=== PATIENT | male | born 1945 | race Caucasian/White ===

== ENCOUNTER → 2020-09-01 10:18 | Outpatient (BNVA) | payer MEDICARE, OTHER, SELFPAY | PROVIDERS: PCP Internal Medicine; Visit Provider Hospitalist | DX: J44.9 Chronic obstructive pulmonary disease, unspecified (principal); J98.6 Disorders of diaphragm; D80.3 Selective deficiency of immunoglobulin G [IgG] subclasses | CPT/HCPCS: 99212 ==

== ENCOUNTER → 2021-03-02 10:55 | Outpatient (BNVA) | payer MEDICARE, OTHER, SELFPAY | PROVIDERS: PCP Internal Medicine; Visit Provider Hospitalist | DX: D80.3 Selective deficiency of immunoglobulin G [IgG] subclasses (principal); J98.6 Disorders of diaphragm; J41.0 Simple chronic bronchitis | CPT/HCPCS: 99212 ==

== ENCOUNTER 2021-07-31 13:50 | Outpatient (REF) | payer MEDICARE, OTHER, SELFPAY ==
--- NOTE | ~2021-07-31 | XR_ITS ---
EXAMINATION: XR CHEST CLINICAL INFORMATION: Chronic obstructive pulmonary disease. COMPARISON: 02/25/2020 TECHNIQUE: 2 views of the chest were obtained. FINDINGS: Chronic elevation of the left hemidiaphragm with underlying gas filled stomach. No consolidation, edema, or effusion. No pneumothorax. The cardiomediastinal silhouette is within normal limits. No acute osseous abnormality. XR/XR chest 2V IMPRESSION: Chronic elevation of the left hemidiaphragm. No acute pulmonary finding.
== END 2021-07-31 13:51 | disposition home or self-care (01) ==
LOC: HO.XRAY 13:50
PROVIDERS: PCP Internal Medicine; Visit Provider Hospitalist
DX: J44.9 Chronic obstructive pulmonary disease, unspecified (principal); J98.6 Disorders of diaphragm; G47.33 Obstructive sleep apnea (adult) (pediatric); D80.3 Selective deficiency of immunoglobulin G [IgG] subclasses; Z99.89 Dependence on other enabling machines and devices
CPT/HCPCS: 71046; 99212

== ENCOUNTER 2021-10-26 09:33 | Outpatient (REF) | payer MEDICARE, OTHER, SELFPAY ==
--- NOTE | ~2021-10-26 | XR_ITS ---
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 Elevation left hemidiaphragm unchanged from prior exam. Heart and mediastinum: The mediastinum is within normal limits.. Bones/soft tissue: Skeletal structures included are normal for patient's age. XR/XR chest 2V IMPRESSION: No radiographic evidence of acute cardiopulmonary disease. Elevation of left hemidiaphragm unchanged. May consider correlation with fluoroscopic sniff test to assess diaphragmatic mobility/paralysis if clinically indicated.
[2021-10-26 10:01] LABS: MANUAL DIFF FLAG NO
[2021-10-26 10:26] LABS: Basophils Absolute Auto 0.1 X10*3/uL (0.0-0.2); Eosinophils Percent Auto 0.1 % (0-4); Hematocrit 41.9 % (42.0-52.0); Hemoglobin 13.4 g/dl (14.0-18.0); Imm Gran Abs Auto 0.02 X10*3/uL (0.00-0.03); Imm Gran Pct Auto 0.3 % (0.0-0.4); Lymphocytes Absolute Auto 1.9 X10*3/uL (1.2-4.9); Lymphocytes Percent Auto 28.1 % (20-40); Mean Corpuscular Hemoglobin 31.2 pg (27.0-33.0); Mean Corpuscular Volume 97.4 fL (80.0-98.0); Mean Platelet Volume 10.1 fL (9.4-12.4); Monocytes Absolute Auto 0.6 X10*3/uL (0.1-1.2); Monocytes Percent Auto 8.8 % (2-11); Neutrophils Absolute Auto 4.2 x10*3/uL (2.0-8.3); Neutrophils Percent Auto 61.7 % (45-73); Platelet Count 210 X10*3/uL (160-400); Red Cell Distribution Width 12.8 % (11.0-16.0); White Blood Count 6.8 X10*3/uL (4.8-10.8)
[2021-10-26 11:04] LABS: Erythrocyte Sedimentation Rate 5 MM/HR (0-15)
[2021-10-27 18:36] LABS: Immunoglobulin G Subclass 1 333 mg/dL (382-929); Immunoglobulin G Subclass 2 360 mg/dL (241-700); Immunoglobulin G Subclass 3 101 mg/dL (22-178); Immunoglobulin G Subclass 4 27.6 mg/dL (4-86); Immunoglobulin G Total 790 mg/dL (600-1540)
== END 2021-10-26 09:34 | disposition home or self-care (01) ==
LOC: HO.XRAY 09:33
PROVIDERS: PCP Internal Medicine; Visit Provider Hospitalist
DX: J44.9 Chronic obstructive pulmonary disease, unspecified (principal); J98.6 Disorders of diaphragm
CPT/HCPCS: 36415; 71046; 82784; 85025; 85652

== ENCOUNTER → 2021-10-31 15:17 | Outpatient (BNVA) | payer MEDICARE, OTHER, SELFPAY | PROVIDERS: PCP Internal Medicine; Visit Provider Hospitalist | DX: J44.9 Chronic obstructive pulmonary disease, unspecified (principal); G47.33 Obstructive sleep apnea (adult) (pediatric); D80.3 Selective deficiency of immunoglobulin G [IgG] subclasses; J98.6 Disorders of diaphragm; J41.0 Simple chronic bronchitis; Z99.89 Dependence on other enabling machines and devices | CPT/HCPCS: 99212 ==

== ENCOUNTER → 2022-12-19 10:35 | Outpatient (BNVA) | payer MEDICARE, OTHER, SELFPAY | PROVIDERS: PCP Internal Medicine; Visit Provider Hospitalist | DX: Z01.811 Encounter for preprocedural respiratory examination (principal); J41.0 Simple chronic bronchitis; D80.3 Selective deficiency of immunoglobulin G [IgG] subclasses; J98.6 Disorders of diaphragm; G47.33 Obstructive sleep apnea (adult) (pediatric); Z79.899 Other long term (current) drug therapy; Z99.89 Dependence on other enabling machines and devices | CPT/HCPCS: 99212 ==

== ENCOUNTER 2023-12-23 09:35 | Outpatient (AMB) | payer MEDICARE, OTHER, SELFPAY ==
[2023-12-23 09:43] VITALS: BP 134/60; PULSE 62; O2SAT 97; BMI 30.9
--- NOTE | 2023-12-23 09:43 | A.OFFVIS_ITS ---
Intake Vital Signs 12/23/23 09:43 Height 5 ft 7.5 in Weight 200 lb BMI 30.9 BP 134/60 Blood Pressure Location Lt brachial Position Sitting Pulse 62 Pulse Source Pulse Oximeter Pulse Oximetry (%) 97 Oxygen Delivery Method Room Air Intake Visit Reasons: Obstructive sleep apnea Allergies No Known Allergies Allergy (Verified 12/23/23 09:45) HPI HPI Comments History of Present Illness Details The patient is a 78-year-old gentleman with history of asthma COPD. He has been having issues with increasing episodes of difficulty breathing. Usually sporadic. When that happens he starts using his pursed breathing. He does not have a short-acting beta agonist at this time. He is currently using Symbicort in addition to Spiriva. The only inhaler really was effective for him was Dulera. However, his insurance company did not approve the Dulera for him in the past. Based on the fact that he is having significant more wheezing and shortness of breath the patient is failed multiple inhalers including Advair, Breo, Symbicort, Spiriva the patient should be able to start Dulera at this time. He also needs to get an x-ray and also pulmonary function studies. He could not get the Dulera so we switched him to QVAR in Anoro. This combination appears to be more effective for him. He is feeling better is breathing better and coughing less. In the meantime he did have a chest x-ray demonstrating some elevations of the left hemidiaphragm but he also has some basilar changes with some reticulonodular opacities. To some degree this may explain the decrease in the DLCO. He was switched him over to QVAR and Anoro. The medications actually been helping his respiratory status a great deal. However, he is wondering if there affecting his eyes. He did follow-up with his eye doctor and also his primary care doctor tried multiple dry eye drops without any significant improvement. I am okay with him stopping the QVAR with the understanding that he may need a short-acting beta agonist more often. If the QVAR does not improve the symptoms he should stop it for about a week and then if not better in go ahead and stop the Anoro as well. In the meantime he has been getting more shortness of breath. [id number] severity. Mainly with activity. He did have an x-ray back in October demonstrating elevation of the left hemidiaphragm. Therefore plan to repeated sooner than later. Also plan to do allergy testing. 12/19/2022 the patient is here for pulmonary follow-up visit. The patient overall is doing better. He did have COVID back in August. She was given packs Flovent and tolerated it well. He denies any residual symptoms at this time. The patient has been using the QVAR and Stiolto inhalers for the COPD and seems that is really helping his respiratory symptoms. Feels that the combination works very well for him. Denies any significant shortness of breath or cough. In regards to the CPAP he does struggle with it. He wishes he had an alternative. He is wondering about the hypoglossal nerve stimulator. I advised him not to consider. Although, he can consider a mandibular device. He can look into either going to a dentist in getting a device. He can always call me in a can also refer him to somebody. Right now he is doing better he did have nasal congestion that was bothering his CPAP but now that he has nasal sprays in the congestion she is feeling better he is tolerating the CPAP better. He does use it every night and is CPAP therapy has been affecting beneficial. He does use it more than 4 hours a night. The patient also was noted to have carotid artery disease. Will be following up with the results. In the case the patient may need surgery he is able to proceed from a pulmonary standpoint. 12/23/2023 the patient is here for a pulmonary follow-up visit. Overall the patient has been doing well. He has been having some difficulties with the CPAP. Sometimes he feels like the CPAP pressure is not enough. He does use a nasal mask. Sometimes she wakes up with a dry mouth. We did talk about switching over to a fullface mask. I did have a medium F20 mask that he can try. Will also need to increase the pressures most likely. The patient is due for new machine. If it is continues to given difficulties with the air leak specially around the water chamber we can also request a replacement machine. First, will try increasing the pressures in trying the new mask. He will get back to him. Also, the patient is having some difficulty with breathing. He has not been using the Stiolto because it has not been very helpful. The QVAR seems to be more effective for him he feels like he is actually getting into his lungs. The patient is on triple therapy for COPD. Will go ahead and switch him over to Breztri. 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 He is to monitor closely his weight. If he understands that if he gains weight that this will cause worsening abdominal pressure and restriction of his lung capacity. [facility] Medical History (Updated 12/19/22 @ 11:09 by Jaime Eagle MD) LIVAN on CPAP IgG subclass deficiency Acquired elevated diaphragm COPD (chronic obstructive pulmonary disease) Social History (Updated 03/02/21 @ 11:18 by VIC Jose) Patient Tobacco Use Status: Former Tobacco user Tobacco use type: Cigarette Years Smoked: 43 years Review of Systems Const Denies night sweats Eyes Reports dry eyes and Reports irritation ENT Denies change in voice, Denies lip swelling, Denies mouth pain, Reports nasal congestion, Reports nasal discharge and Denies tongue swelling Card Denies chest pain and Reports dyspnea on exertion Resp Reports cough and Reports dyspnea on exertion GI Denies abdominal pain Musc Denies no additional complaints Neuro Denies Neuro-related abnormal movements Psych Denies no additional complaints Harsha/Lymph Denies easy bleeding and Denies lymphadenopathy Aller/Immun Denies lip swelling and Denies tongue swelling Physical Exam Vital Signs: Last Vital Signs Pulse 62 12/23/23 09:43 BP 134/60 12/23/23 09:43 Pulse Ox 97 12/23/23 09:43 Oxygen Delivery Method Room Air 12/23/23 09:43 BMI result Body Mass Index 30.9 Const General: alert Neck Neck: Yes normal visual inspection, Yes full ROM and Yes no lymphadenopathy Chest Chest palpation & inspection: normal inspection of the chest Resp Auscultation: no wheezes and diminished lung sounds Cardio Rate: regular rate Rhythm: regular rhythm Heart sounds: S1 normal heart sound present and S2 normal heart sound present GI Palpation (GI): Soft to palpation and nontender Auscultation: normal bowel sounds Skin General skin exam: rashes and/or lesions noted Assessment & Plan Assessment & Plan (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 Switch to FM, F20 med, will increase pressures 10-16 to 11-16 continue singulair follow-up in 6 months Medications: New [id number] 160-9-4.8 mcg/actuation (Breztri Aerosphere) 2 inhalations inhalation BID 10.7 grams 11RF Coding Level of Care Code Est Pt Level 4 (47950) Diagnoses IgG subclass deficiency D80.3 Acquired elevated diaphragm J98.6 Simple chronic bronchitis J41.0 COPD type: chronic bronchitis Chronic bronchitis type: simple LIVAN on CPAP G47.33; Z99.89 Time Spent (min) 18
== END 2023-12-23 10:09 | disposition home or self-care (01) ==
PROVIDERS: PCP Internal Medicine; Visit Provider Hospitalist
DX: D80.3 Selective deficiency of immunoglobulin G [IgG] subclasses (principal); J98.6 Disorders of diaphragm; J41.0 Simple chronic bronchitis; G47.33 Obstructive sleep apnea (adult) (pediatric); Z99.89 Dependence on other enabling machines and devices
CPT/HCPCS: 99214

== ENCOUNTER → 2023-12-23 09:35 | Outpatient (BNVA) | payer MEDICARE, OTHER, SELFPAY | PROVIDERS: PCP Internal Medicine; Visit Provider Hospitalist | DX: G47.33 Obstructive sleep apnea (adult) (pediatric) (principal); D80.3 Selective deficiency of immunoglobulin G [IgG] subclasses; J98.6 Disorders of diaphragm; J41.0 Simple chronic bronchitis; Z99.89 Dependence on other enabling machines and devices | CPT/HCPCS: 99212 ==

== ENCOUNTER 2024-06-23 08:42 | Outpatient (AMB) | payer MEDICARE, OTHER, SELFPAY ==
[2024-06-23 09:03] VITALS: BP 128/70; PULSE 61; O2SAT 98; BMI 30.6
--- NOTE | 2024-06-23 09:03 | A.OFFVIS_ITS ---
Vital Signs 06/23/24 09:03 Height 5 ft 7 in Weight 195 lb 1.745 oz BMI 30.6 BP 128/70 Blood Pressure Location Lt brachial Position Sitting Pulse 61 Pulse Source Pulse Oximeter Pulse Oximetry (%) 98 Oxygen Delivery Method Room Air Intake Visit Reasons: Obstructive sleep apnea Weather Observer Required: No Allergies No Known Allergies Allergy (Verified 06/23/24 09:05) HPI Comments Details: The patient is a 78-year-old gentleman with history of asthma COPD. He has been having issues with increasing episodes of difficulty breathing. Usually sporadic. When that happens he starts using his pursed breathing. He does not have a short-acting beta agonist at this time. He is currently using Symbicort in addition to Spiriva. The only inhaler really was effective for him was Dulera. However, his insurance company did not approve the Dulera for him in the past. Based on the fact that he is having significant more wheezing and shortness of breath the patient is failed multiple inhalers including Advair, Breo, Symbicort, Spiriva the patient should be able to start Dulera at this time. He also needs to get an x-ray and also pulmonary function studies. He could not get the Dulera so we switched him to QVAR in Anoro. This combination appears to be more effective for him. He is feeling better is breathing better and coughing less. In the meantime he did have a chest x-ray demonstrating some elevations of the left hemidiaphragm but he also has some basilar changes with some reticulonodular opacities. To some degree this may explain the decrease in the DLCO. He was switched him over to QVAR and Anoro. The medications actually been helping his respiratory status a great deal. However, he is wondering if there affecting his eyes. He did follow-up with his eye doctor and also his primary care doctor tried multiple dry eye drops without any significant improvement. I am okay with him stopping the QVAR with the understanding that he may need a short-acting beta agonist more often. If the QVAR does not improve the symptoms he should stop it for about a week and then if not better in go ahead and stop the Anoro as well. In the meantime he has been getting more shortness of breath. Dqfz-be-xgojbzxb severity. Mainly with activity. He did have an x-ray back in October demonstrating elevation of the left hemidiaphragm. Therefore plan to repeated sooner than later. Also plan to do allergy testing. 12/19/2022 the patient is here for pulmonary follow-up visit. The patient overall is doing better. He did have COVID back in August. She was given packs Flovent and tolerated it well. He denies any residual symptoms at this time. The patient has been using the QVAR and Stiolto inhalers for the COPD and seems that is really helping his respiratory symptoms. Feels that the combination works very well for him. Denies any significant shortness of breath or cough. In regards to the CPAP he does struggle with it. He wishes he had an alternative. He is wondering about the hypoglossal nerve stimulator. I advised him not to consider. Although, he can consider a mandibular device. He can look into either going to a dentist in getting a device. He can always call me in a can also refer him to somebody. Right now he is doing better he did have nasal congestion that was bothering his CPAP but now that he has nasal sprays in the congestion she is feeling better he is tolerating the CPAP better. He does use it every night and is CPAP therapy has been affecting beneficial. He does use it more than 4 hours a night. The patient also was noted to have carotid artery disease. Will be following up with the results. In the case the patient may need surgery he is able to proceed from a pulmonary standpoint. 12/23/2023 the patient is here for a pulmonary follow-up visit. Overall the patient has been doing well. He has been having some difficulties with the CPAP. Sometimes he feels like the CPAP pressure is not enough. He does use a nasal mask. Sometimes she wakes up with a dry mouth. We did talk about switching over to a fullface mask. I did have a medium F20 mask that he can try. Will also need to increase the pressures most likely. The patient is due for new machine. If it is continues to given difficulties with the air leak specially around the water chamber we can also request a replacement machine. First, will try increasing the pressures in trying the new mask. He will get back to him. Also, the patient is having some difficulty with breathing. He has not been using the Stiolto because it has not been very helpful. The QVAR seems to be more effective for him he feels like he is actually getting into his lungs. The patient is on triple therapy for COPD. Will go ahead and switch him over to Breztri. 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 He is to monitor closely his weight. If he understands that if he gains weight that this will cause worsening abdominal pressure and restriction of his lung capacity. 06/23/2024 the patient is here for a pulmonary follow-up visit. The patient is overall doing okay. We did adjust his machine and he did get a new CPAP AirSense 11 during the last visit. However, he feels like the pressures are too high. Currently set up APAP 11-18. The patient has been using it more than 4 hours a night. However he has a hard time falling asleep because of high pressures. He does not turn on the ramp. Therefore, we did download the data. Appears that his average pressure is 11 so therefore we going to work on decreasing the minimum pressure from 11-9 cm. In addition to that at that place a ramp of 7. Hopefully he should be able to tolerated better based on these changes. He can always call if he has any issues. In the meantime will switch him over to a triple inhaler, Breztri, but it did not work well for the patient. Therefore he stopped it went back to his typical Stiolto and QVAR this seemed to be working well for him. Does have a rescue inhaler but typically does not use it more than twice a week. He has overall pretty stable from that standpoint. He is working on weight loss his respiratory status is better at this time. Will continue with current respiratory medications. If he has any issues he will call. At some point he should have a repeat chest x-ray. [facility] Medical History (Updated 12/19/22 @ 11:09 by Jaime Eagle MD) LIVAN on CPAP IgG subclass deficiency Acquired elevated diaphragm COPD (chronic obstructive pulmonary disease) Social History (Updated 03/02/21 @ 11:18 by VIC Jose) Patient Tobacco Use Status: Former Tobacco user Tobacco use type: Cigarette Years Smoked: 43 years Review of Systems Const Denies night sweats Eyes Reports dry eyes and Reports irritation ENT Denies change in voice, Denies lip swelling, Denies mouth pain, Reports nasal congestion, Reports nasal discharge and Denies tongue swelling Card Denies chest pain and Reports dyspnea on exertion Resp Reports cough and Reports dyspnea on exertion GI Denies abdominal pain Musc Denies no additional complaints Neuro Denies Neuro-related abnormal movements Psych Denies no additional complaints Harsha/Lymph Denies easy bleeding and Denies lymphadenopathy Aller/Immun Denies lip swelling and Denies tongue swelling Physical Exam Vital Signs: Last Vital Signs Pulse 61 06/23/24 09:03 BP 128/70 06/23/24 09:03 Pulse Ox 98 06/23/24 09:03 Oxygen Delivery Method Room Air 06/23/24 09:03 BMI result Body Mass Index 30.6 Const General: alert Neck Neck: Yes normal visual inspection, Yes full ROM and Yes no lymphadenopathy Chest Chest palpation & inspection: normal inspection of the chest Resp Auscultation: no wheezes and diminished lung sounds Cardio Rate: regular rate Rhythm: regular rhythm Heart sounds: S1 normal heart sound present and S2 normal heart sound present GI Palpation (GI): Soft to palpation and nontender Auscultation: normal bowel sounds Skin General skin exam: rashes and/or lesions noted Assessment & Plan Assessment & Plan (1) COPD (chronic obstructive pulmonary disease): Code(s): J44.9 - Chronic obstructive pulmonary disease, unspecified Category: Medical Qualifiers: COPD type: chronic bronchitis Chronic bronchitis type: simple Qualified Code(s): J41.0 - Simple chronic bronchitis (2) LIVAN on CPAP: Code(s): G47.33 - Obstructive sleep apnea (adult) (pediatric); Z99.89 - Dependence on other enabling machines and devices Category: Medical (3) Acquired elevated diaphragm: Code(s): J98.6 - Disorders of diaphragm Category: Medical (4) 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 Switch to FM, F20 med, will increase pressures 10-16 to 11-16 continue singulair follow-up in 8-12 months Coding Level of Care Code Est Pt Level 4 (69699) Diagnoses Simple chronic bronchitis J41.0 COPD type: chronic bronchitis Chronic bronchitis type: simple LIVAN on CPAP G47.33; Z99.89 Acquired elevated diaphragm J98.6 IgG subclass deficiency D80.3 Time Spent (min) 17
== END 2024-06-23 09:19 | disposition home or self-care (01) ==
PROVIDERS: PCP Internal Medicine; Visit Provider Hospitalist
DX: J41.0 Simple chronic bronchitis (principal); G47.33 Obstructive sleep apnea (adult) (pediatric); Z99.89 Dependence on other enabling machines and devices; J98.6 Disorders of diaphragm; D80.3 Selective deficiency of immunoglobulin G [IgG] subclasses
CPT/HCPCS: 99214

== ENCOUNTER → 2024-06-23 08:42 | Outpatient (BNVA) | payer MEDICARE, OTHER, SELFPAY | PROVIDERS: PCP Internal Medicine; Visit Provider Hospitalist | DX: G47.33 Obstructive sleep apnea (adult) (pediatric) (principal); J98.6 Disorders of diaphragm; D80.3 Selective deficiency of immunoglobulin G [IgG] subclasses; J41.0 Simple chronic bronchitis; Z99.89 Dependence on other enabling machines and devices | CPT/HCPCS: 99212 ==

== ENCOUNTER 2024-12-29 08:48 | Outpatient (AMB) | payer MEDICARE, OTHER, SELFPAY ==
[2024-12-29 08:52] VITALS: BP 124/72; PULSE 55; O2SAT 97; BMI 30.9
--- NOTE | 2024-12-29 08:52 | MHC.OFFVIS ---
Vital Signs 12/29/24 08:52 Height 5 ft 7 in Weight 197 lb 5.019 oz BMI 30.9 BP 124/72 Blood Pressure Location Rt brachial Position Sitting Pulse 55 Pulse Source Pulse Oximeter Pulse Oximetry (%) 97 Oxygen Delivery Method Room Air Intake Visit Reasons: Obstructive sleep apnea Allergies No Known Allergies Allergy (Verified 12/29/24 08:54) HPI Comments Details: The patient is a 79-year-old gentleman with history of asthma COPD. He has been having issues with increasing episodes of difficulty breathing. Usually sporadic. When that happens he starts using his pursed breathing. He does not have a short-acting beta agonist at this time. He is currently using Symbicort in addition to Spiriva. The only inhaler really was effective for him was Dulera. However, his insurance company did not approve the Dulera for him in the past. Based on the fact that he is having significant more wheezing and shortness of breath the patient is failed multiple inhalers including Advair, Breo, Symbicort, Spiriva the patient should be able to start Dulera at this time. He also needs to get an x-ray and also pulmonary function studies. He could not get the Dulera so we switched him to QVAR in Anoro. This combination appears to be more effective for him. He is feeling better is breathing better and coughing less. In the meantime he did have a chest x-ray demonstrating some elevations of the left hemidiaphragm but he also has some basilar changes with some reticulonodular opacities. To some degree this may explain the decrease in the DLCO. He was switched him over to QVAR and Anoro. The medications actually been helping his respiratory status a great deal. However, he is wondering if there affecting his eyes. He did follow-up with his eye doctor and also his primary care doctor tried multiple dry eye drops without any significant improvement. I am okay with him stopping the QVAR with the understanding that he may need a short-acting beta agonist more often. If the QVAR does not improve the symptoms he should stop it for about a week and then if not better in go ahead and stop the Anoro as well. In the meantime he has been getting more shortness of breath. [id number] severity. Mainly with activity. He did have an x-ray back in October demonstrating elevation of the left hemidiaphragm. Therefore plan to repeated sooner than later. Also plan to do allergy testing. 12/19/2022 the patient is here for pulmonary follow-up visit. The patient overall is doing better. He did have COVID back in August. She was given packs Flovent and tolerated it well. He denies any residual symptoms at this time. The patient has been using the QVAR and Stiolto inhalers for the COPD and seems that is really helping his respiratory symptoms. Feels that the combination works very well for him. Denies any significant shortness of breath or cough. In regards to the CPAP he does struggle with it. He wishes he had an alternative. He is wondering about the hypoglossal nerve stimulator. I advised him not to consider. Although, he can consider a mandibular device. He can look into either going to a dentist in getting a device. He can always call me in a can also refer him to somebody. Right now he is doing better he did have nasal congestion that was bothering his CPAP but now that he has nasal sprays in the congestion she is feeling better he is tolerating the CPAP better. He does use it every night and is CPAP therapy has been affecting beneficial. He does use it more than 4 hours a night. The patient also was noted to have carotid artery disease. Will be following up with the results. In the case the patient may need surgery he is able to proceed from a pulmonary standpoint. 12/23/2023 the patient is here for a pulmonary follow-up visit. Overall the patient has been doing well. He has been having some difficulties with the CPAP. Sometimes he feels like the CPAP pressure is not enough. He does use a nasal mask. Sometimes she wakes up with a dry mouth. We did talk about switching over to a fullface mask. I did have a medium F20 mask that he can try. Will also need to increase the pressures most likely. The patient is due for new machine. If it is continues to given difficulties with the air leak specially around the water chamber we can also request a replacement machine. First, will try increasing the pressures in trying the new mask. He will get back to him. Also, the patient is having some difficulty with breathing. He has not been using the Stiolto because it has not been very helpful. The QVAR seems to be more effective for him he feels like he is actually getting into his lungs. The patient is on triple therapy for COPD. Will go ahead and switch him over to Breztri. 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 He is to monitor closely his weight. If he understands that if he gains weight that this will cause worsening abdominal pressure and restriction of his lung capacity. 06/23/2024 the patient is here for a pulmonary follow-up visit. The patient is overall doing okay. We did adjust his machine and he did get a new CPAP AirSense 11 during the last visit. However, he feels like the pressures are too high. Currently set up APAP 11-18. The patient has been using it more than 4 hours a night. However he has a hard time falling asleep because of high pressures. He does not turn on the ramp. Therefore, we did download the data. Appears that his average pressure is 11 so therefore we going to work on decreasing the minimum pressure from 11-9 cm. In addition to that at that place a ramp of 7. Hopefully he should be able to tolerated better based on these changes. He can always call if he has any issues. In the meantime will switch him over to a triple inhaler, Breztri, but it did not work well for the patient. Therefore he stopped it went back to his typical Stiolto and QVAR this seemed to be working well for him. Does have a rescue inhaler but typically does not use it more than twice a week. He has overall pretty stable from that standpoint. He is working on weight loss his respiratory status is better at this time. Will continue with current respiratory medications. If he has any issues he will call. At some point he should have a repeat chest x-ray. 12/29/2024 the patient is here for a pulmonary follow-up visit. Overall the patient has been doing well. His respiratory medications have been affecting beneficial. Does not use his rescue inhaler typically less than 2 times a week. No recent illnesses. His nasal congestion is also been better so therefore he stopped using his nasal sprays. The patient has been using the CPAP every night. CPAP therapy has been affecting beneficial. We did download the CPAP and his AHI is down to about 2. Current settings are adequate. His mask is also comfortable. He is getting supplies from the DME, [facility] will submit a prescription at this time. Will follow-up in a year's time. Meantime on exam he does have some crackles primarily in the right base. We already know that he has had elevated left hemidiaphragm. Will have him get a chest x-ray and his earliest convenience. If any significant findings are call him and let him know. Otherwise will follow-up in a year's time. [facility] Medical History (Updated 12/19/22 @ 11:09 by Jaime Eagle MD) LIVAN on CPAP IgG subclass deficiency Acquired elevated diaphragm COPD (chronic obstructive pulmonary disease) Social History Patient Tobacco Use Status: Former Tobacco user Tobacco use type: Cigarette Years Smoked: 43 years Review of Systems Const Denies night sweats Eyes Reports dry eyes and Reports irritation ENT Denies change in voice, Denies lip swelling, Denies mouth pain, Reports nasal congestion, Reports nasal discharge and Denies tongue swelling Card Denies chest pain and Reports dyspnea on exertion Resp Reports cough and Reports dyspnea on exertion GI Denies abdominal pain Musc Denies no additional complaints Neuro Denies Neuro-related abnormal movements Psych Denies no additional complaints Harsha/Lymph Denies easy bleeding and Denies lymphadenopathy Aller/Immun Denies lip swelling and Denies tongue swelling Physical Exam Vital Signs: Last Vital Signs Pulse 55 12/29/24 08:52 BP 124/72 12/29/24 08:52 Pulse Ox 97 12/29/24 08:52 Oxygen Delivery Method Room Air 12/29/24 08:52 BMI result Body Mass Index 30.9 Const General: alert Neck Neck: Yes normal visual inspection, Yes full ROM and Yes no lymphadenopathy Chest Chest palpation & inspection: normal inspection of the chest Resp Auscultation: no wheezes and diminished lung sounds Cardio Rate: regular rate Rhythm: regular rhythm Heart sounds: S1 normal heart sound present and S2 normal heart sound present GI Palpation (GI): Soft to palpation and nontender Auscultation: normal bowel sounds Skin General skin exam: rashes and/or lesions noted Assessment & Plan Assessment & Plan (1) COPD (chronic obstructive pulmonary disease): Code(s): J44.9 - Chronic obstructive pulmonary disease, unspecified Category: Medical Qualifiers: COPD type: chronic bronchitis Chronic bronchitis type: simple Qualified Code(s): J41.0 - Simple chronic bronchitis (2) LIVNA on CPAP: Code(s): G47.33 - Obstructive sleep apnea (adult) (pediatric); Z99.89 - Dependence on other enabling machines and devices Category: Medical (3) Acquired elevated diaphragm: Code(s): J98.6 - Disorders of diaphragm Category: Medical (4) 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 F20 med, APAP 9-16 continue singulair CXR follow-up in 8-12 months Orders: Orders XR chest 2V Today J98.6 - Disorders of diaphragm Coding Level of Care Code Est Pt Level 4 (30882) Diagnoses Simple chronic bronchitis J41.0 COPD type: chronic bronchitis Chronic bronchitis type: simple LIVAN on CPAP G47.33; Z99.89 Acquired elevated diaphragm J98.6 IgG subclass deficiency D80.3 Time Spent (min) 16
--- OUTSIDE RECORDS SUMMARY | 2024-12-29 09:16 | XMS_ITS | Clinical Summary ---
Author Organization [facility] Address [address] [place] [address] Care Team Providers Care Skin Tanner Name Role Phone Sidney Copeland Primary Care Provider [phone] Surgical History Surgery Date Site/Laterality Comments COLONOSCOPY 12/18/2016 PROCEDURE: HISTORICAL COLONOSCOPY COLONOSCOPY 01/05/2019 PROCEDURE: HISTORICAL COLONOSCOPY OTHER SURGICAL HISTORY Right PROCEDURE: HISTORY OTHER; COMMENT: Hernia Repair FLEXIBLE SIGMOIDOSCOPY PROCEDURE: HISTORICAL FLEXIBLE SIGMOIDOSCOPY COLONOSCOPY 2004 PROCEDURE: HISTORICAL COLONOSCOPY COLONOSCOPY 2012 PROCEDURE: HISTORICAL COLONOSCOPY OTHER SURGICAL HISTORY 12/09/2020 PROCEDURE: HISTORY OTHER; COMMENT: DCR to both eyes Medical History Medical History Date Comments 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) 07/23/2017 DX:Asthma-chronic o bstructive pulmonary disease overlap syndrome (HCC) Hypercholesterolemia 01/14/2014 DX:Hypercho lesterolemia Hypertension 01/14/2014 DX:Hypertension LIVAN (obstructive sleep apnea) 07/23/2017 DX :LIVAN (obstructive sleep apnea) Varicocele DX:Varicocele Tubular adenoma DX:Tubular adeno ma Sleep apnea DX:Sleep apnea Shingles DX:Shingles Psoriasis DX:Psoriasis Osteoarthritis DX:Osteoarthriti s BPH with urinary obstruction DX: BPH with urinary obstruction URI (upper respiratory infection) DX:URI (upper respiratory infection) Otitis media DX:Otitis media; COMMENT: NOS Rhinitis DX:Rhinitis Complex renal cyst DX:Complex re nal cyst; COMMENT: mild Moderate persistent asthma w ithout complication DX:Moderate persistent asthm a without complication Mild anemia DX:Mild anemia Seasonal allergic rhinitis due to pollen DX:Seasonal allergic rhinitis due to pollen Left thigh pain DX:Left thigh pa in Family History Medical History Relation Name Comments Diabetes Brother Heart failure Father Hypertension Father Diabetes Mother Heart attack Mother Heart failure Mother Hypertension Mother Relation Name Status Comments Brother Father (Age 67) Mother (Age 83) Social History Tobacco Use Types Packs/Day Years Used Date Smoking Tobacco: Former Cigarettes Q uit: 09/30/1976 Smokeless Tobacco: Never Alcohol Use Standard Drinks/Week Comments Yes 0 (1 standard drink = 0.6 oz pur e alcohol) Sex and Gender Information Value Date Recorded Sex Assigned at Not on file Legal Sex Male 8:00 AM EST Gender Identity Not on file Sexual Orientation Not on file Obstetrics History Last Filed Vital Signs Vital Sign Reading Time Taken Comments Blood Pressure 138/72 06/15/2024 9:12 AM EDT Pulse 59 06/15/2024 8:49 AM EDT Temperature - - Respiratory Rate - - Oxygen Saturation - - Inhaled Oxygen Concentration - - Weight 88.8 kg (195 lb 11.2 oz) 06/15/2024 8:49 AM EDT Height 170.2 cm (5' 7 ) 06/15/2024 8:49 AM EDT Body Mass Index 30.65 06/15/2024 8:49 AM EDT Plan of Treatment Health Maintenance Due Date Last Done Comments DTaP,Tdap,and Td Vaccines (1 - Tdap) 1964 Pneumococcal Vaccine: 50+ Years (1 of 2 - PCV) 1963 Zoster Vaccines (1 of 2) 1994 RSV Immunization Patients 60+ Years Old (1 - 1-dose 75+ series) 2019 Cholesterol Screening (Lipid Panel) 09/02/2022 Depression Screening 09/02/2022 Falls Risk Assessment 09/02/2022 Social Influencers of Health Screening 09/02/2022 Hypertension/CHF/CAD Annual BMP Blood Test 09/06/2022 COVID-19 Vaccine ( - season) 2024 Influenza Vaccine (#1) 2024 3, 07/12/2022, 08/22/2021, Additional history exists HIB Vaccines Aged Out No longer eligi ble based on patient's age to complete this topic HPV Vaccines Aged Out No longer eligi ble based on patient's age to complete this topic Hepatitis A Vaccines Aged Out No long er eligible based on patient's age to complete this topic Hepatitis B Vaccines Aged Out No long er eligible based on patient's age to complete this topic IPV Vaccines Aged Out No longer eligi ble based on patient's age to complete this topic MMR Vaccines Aged Out No longer eligi ble based on patient's age to complete this topic Meningococcal ACWY Vaccine Aged Out N o longer eligible based on patient's age to complete this topic Meningococcal B Vacine Aged Out No lo nger eligible based on patient's age to complete this topic RSV Immunization Patients Under 20 months Aged Out No longer eligible based on patient's age to complete this topic Varicella Vaccines Aged Out No longer eligible based on patient's age to complete this topic Care Teams Skin Tanner Relationship Specialty Start Date End Date Sidney Copeland PA [address] [place] [id number] PCP - General 05/31/23
--- OUTSIDE RECORDS SUMMARY | 2024-12-29 09:16 | XMS_ITS | Clinical Summary ---
Author Organization [facility] Address [address] [place] [id number] Care Team Providers Care Digital Librarian Name Role Phone Sidney Copeland PA-C Primary Care Provider [phone] Allergies No known active allergies Medications Medication Sig Dispensed Refills Start Date End Date Status albuterol (PROVENTIL HFA; VENTOLIN HFA) 108 (90 Base) MCG/ACT inhaler INHALE 2 PUFFS EVERY 6 HOURS NEEDED FOR SHORTNESS OF BREATH OR WHEEZING FOR 30 DAYS 09/18/2022 Active alfuzosin (UROXATRAL) 10 MG 24 hr tablet Take 1 tablet (10 mg total) by mouth daily. 09/14/2022 Active Qvar RediHaler 80 MCG/ACT Aerosol, Breath Activate inhaler Inhale 1 puff (80 mcg total) 2 (two) times a day. 08/02/2022 Active Cyanocobalamin (B-12) 1000 MCG Tab Take 1 tablet by mouth daily. Active finasteride (PROSCAR) 5 MG tablet 08/14/2022 Active Flaxseed, Linseed, (Flax Seed Oil) 1000 MG Cap Take 1,000 mg by mouth. Active gabapentin (NEURONTIN) 300 MG capsule Take 1 capsule (300 mg total) by mouth nightly. 10/02/2022 Active losartan (COZAAR) 100 MG tablet Take 1 tablet (100 mg total) by mouth daily. 09/29/2022 Active montelukast (SINGULAIR) 10 MG tablet Take 1 tablet (10 mg total) by mouth daily. 09/14/2022 Active simvastatin (ZOCOR) 40 MG tablet TAKE 1 TABLET BY MOUTH EVERYDAY AT BEDTIME 08/22/2022 Active Stiolto Respimat 2.5-2.5 MCG/ACT inhaler INHALE 2 PUFFS EVERY 24 HOURS 10/13/2022 Active tobramycin-dexamethas one (TOBRADEX) 0.3-0.1 % ophthalmic suspension Apply 1 drop to eye. Active umeclidinium-vilanter ol (ANORO ELLIPTA) 62.5-25 MCG/ACT inhaler Inhale 2 puffs. Active Active Problems Problem Noted Date Diagnosed Date Sleep disorder 10/17/2022 Encounter to establish care 10/16/2022 LIVAN on CPAP 10/16/2022 Benign prostatic hyperplasia 10/16/2022 Assessment & Plan (10/16/2022 12:19 PM EST): Urology, Dr. Hernandez, [facility] Dyslipidemia 10/16/2022 Leg cramps 10/16/2022 Tinnitus of both ears 10/16/2022 Assessment & Plan (10/16/2022 12:20 PM EST): Dr. Bruner Polyp of colon 10/16/2022 Assessment & Plan (10/16/2022 12:23 PM EST): [facility], 3 yr colonoscopy schedule, due this year Asthma-chronic obstructive p ulmonary disease overlap syndrome 07/23/2017 Assessment & Plan (10/16/2022 12:18 PM EST): Pulmonary, [facility] Hypercholesterolemia 01/14/2014 Overview (10/16/2022): Last Assessment & Plan: His lipids are stable. I made no changes to his medications. We did discuss that if his myalgias continue that we may need to try him off his statin for a week to see if this helps. We did discuss that this sounds more to be from a musculoskeletal issue which she needs to work on stretching, increasing his fluid intake and and may be taking a B12 test. He will let us know if this does not improve. Hypertension 01/14/2014 Overview (10/16/2022): Dr. Wallace, cardiology, [facility] Immunizations Name Administration Dates Next Due Influenza High-Dose Quadriva lent,(FLUZONE HIGH-DOSE), Perservative Free IM 0.7 mL 65 years and older 07/21/2020 Influenza, Quadrivalent (FLU AD) Adjuvanted Preservative Free IM 65 years and older 07/12/2022 Social History Tobacco Use Types Packs/Day Years Used Date Smoking Tobacco: Former Cigarettes Smokeless Tobacco: Former Tobacco Cessation:Counseling Given: Not Answered Alcohol Use Standard Drinks/Week Comments Yes 21 (1 standard drink = 0.6 oz pu re alcohol) 2-3 drinks per day Sex and Gender Information Value Date Recorded Sex Assigned at Not on file Gender Identity Not on file Sexual Orientation Not on file Last Filed Vital Signs Vital Sign Reading Time Taken Comments Blood Pressure 110/76 10/16/2022 11:53 AM EST Pulse 76 10/16/2022 11:53 AM EST Temperature 36.4 ??C (97.6 ??F) 10/16/2022 11:[address] Respiratory Rate 16 10/16/2022 11:53 AM EST Oxygen Saturation 96% 10/16/2022 11:53 AM EST Inhaled Oxygen Concentration - - Weight 91.6 kg (202 lb) 10/16/2022 11:53 AM EST Height 167.6 cm (5' 6 ) 10/16/2022 11:53 AM EST Body Mass Index 32.6 10/16/2022 11:53 AM EST Plan of Treatment Health Maintenance Due Date Last Done Comments DTaP/Tdap/Td Vaccines (1 - Tdap) 1964 Pneumococcal Vaccines 50+ (1 of 2 - PCV) 1963 Zoster (Shingles) Vaccine (1 of 2) 1994 RSV Vaccine 60 years and older and Patients (1 - 1-dose 75+ series) 2019 Influenza Vaccine 04/30/2024 07/11/2023, , 07/21/2020 COVID-19 Vaccine ( - season) 2024 07/11/2023, 07/12/2022, 09/01/2021, Additional history exists Hepatitis B Vaccines Aged Out No long er eligible based on patient's age to complete this topic Care Teams Digital Librarian Relationship Specialty Start Date End Date Sidney Copeland PA-C [address] [place] [address] PCP - General 09/18/23
== END 2024-12-29 09:21 | disposition home or self-care (01) ==
LOC: HO.HPS 08:49
PROVIDERS: PCP Internal Medicine; Visit Provider Hospitalist
DX: J41.0 Simple chronic bronchitis (principal); G47.33 Obstructive sleep apnea (adult) (pediatric); Z99.89 Dependence on other enabling machines and devices; J98.6 Disorders of diaphragm; D80.3 Selective deficiency of immunoglobulin G [IgG] subclasses
CPT/HCPCS: 99214

== ENCOUNTER → 2024-12-29 08:48 | Outpatient (BNVA) | payer MEDICARE, OTHER, SELFPAY | PROVIDERS: PCP Internal Medicine; Visit Provider Hospitalist | DX: G47.33 Obstructive sleep apnea (adult) (pediatric) (principal); J41.0 Simple chronic bronchitis; J98.6 Disorders of diaphragm; D80.3 Selective deficiency of immunoglobulin G [IgG] subclasses; Z99.89 Dependence on other enabling machines and devices | CPT/HCPCS: 99212 ==